=== PATIENT | female | born 1970 | race Caucasian/White ===

== ENCOUNTER → 2019-05-12 | Outpatient (CLI) | payer OTHER ==
[~2019-05-12] MED LIST: IOHEXOL 240 MG/ML 50ML VIAL. ONE; IOHEXOL 240 MG/ML 50ML VIAL. PO ONE; IOHEXOL 300 MG/ML 75 ML VIAL. IV ONE
--- NOTE | 2019-05-12 09:42 | RAD ---
CT abdomen pelvis with contrast dated 05/12/2019. No comparison available. CLINICAL INDICATION: Left lower quadrant pain. TECHNIQUE: Contiguous axial imaging the abdomen pelvis performed after the administration of 70 cc Omnipaque 300. One or more of the following individualized dose reduction techniques were utilized for this examination: 1. Automated exposure control 2. Adjustment of the mA and/or kV according to patient size 3. Use of iterative reconstruction technique. FINDINGS: Limited images of lung bases are clear. Heart size within normal limits. No pleural or pericardial effusion. Liver, spleen, pancreas, adrenal glands, gallbladder and kidneys are unremarkable. No hydronephrosis. There is a focal area of wall thickening involving the sigmoid colon with adjacent inflammatory stranding. Scattered diverticula throughout the colon. A small rim-enhancing pocket of fluid along the inferior margin of the inflamed sigmoid measures up to 2.8 cm maximum dimension with an adjacent small bubble of extraluminal gas. GI tract is otherwise normal in caliber and contour. The appendix is normal in caliber. There is a couple of borderline enlarged left periaortic retroperitoneal lymph nodes. No mesenteric lymphadenopathy. Images the pelvis show nondistended urinary bladder. There is mild diffuse bladder wall thickening in the fluid collection abuts the superior wall of the urinary bladder. No intraluminal gas. The uterus is surgically absent. No significant free pelvic fluid. There is a 1.8 cm right ovarian cyst. There are a few borderline enlarged iliac chain lymph nodes, left greater than right, measuring up to 9 mm short axis. Bone windows show no acute findings. Mild lower lumbar spondylosis. IMPRESSION: 1. Findings consistent with acute sigmoid diverticulitis. There is a small fluid collection with a bubble of extraluminal gas adjacent to the inflamed sigmoid, consistent with microperforation and early abscess. 2. The small perisigmoid fluid collection abuts the upper wall of the urinary bladder and there is diffuse bladder wall thickening. This could be related to reactive changes, although acute or chronic cystitis is also possible. Correlation with urinalysis. 3. There are a few borderline enlarged retroperitoneal and iliac chain lymph nodes, nonspecific 4. Small right ovarian cyst. Electronically signed by: Valentin Luis MD (05/12/2019 9:39 AM) [id number]
== END | disposition home or self-care (01) ==
LOC: CT 07:54
DX: K57.32 Diverticulitis of large intestine without perforation or abscess without bleeding (principal); N83.291 Other ovarian cyst, right side; M47.816 Spondylosis without myelopathy or radiculopathy, lumbar region
CPT/HCPCS: 74177; Q9966; Q9967

== ENCOUNTER → 2020-09-19 | Outpatient (CLI) | payer OTHER ==
--- NOTE | 2020-09-19 11:55 | RAD ---
PQRS Compliance Statement: One or more of the following individualized dose reduction techniques were utilized for this examinat ion: 1. Automated exposure control 2. Adjustment of the mA and/or kV according to patient size 3. Use of iterative reconstruction technique CT ABDOMEN+PELVIS W Clinical Indication: Reason: LLQ ABD PAIN, DIVERTICULITIS / Comparison: CT abdomen and pelvis with contrast May 12, 2019. Technique: Helical CT imaging of the abdomen and pelvis is performed after 75 cc of Omnipaque 300 IV contrast. Oral contrast also administered. Findings: The lung bases are clear. Cardiac size normal. Liver, gallbladder, spleen, pancreas, adrenal glands, and abdominal aorta are normal. Kidneys enhance symmetrically, no hydronephrosis. The stomach is normal. There is no dilated small bowel. The appendix is normal. There is moderate sig moid colon diverticulosis. Mild descending colon diverticulosis. No acute inflammation is seen. No ab dominal adenopathy or free fluid. There are subcentimeter retroperitoneal lymph nodes. Small ovary functional cysts are noted bilaterally. Hysterectomy. The urinary bladder is normal. No p elvic free fluid. No inguinal adenopathy. There is vacuum disc phenomenon of L4/L5. IMPRESSION: 1. No acute abdominal or pelvic abnormality. 2. Moderate distal colon diverticulosis. Electronically signed by: Gonzalez Winters MD (09/19/2020 11:53 AM) [facility]
== END ==
LOC: CT 08:04
PROVIDERS: ATTEND Family Medicine
DX: K57.30 Diverticulosis of large intestine without perforation or abscess without bleeding (principal)
CPT/HCPCS: 74177; Q9966; Q9967